=== PATIENT | male | born 1965 | race Hispanic/Latino ===

== ENCOUNTER 2022-04-24 18:08 | Day surgery (SDC) | payer OTHER ==
[~2022-04-24 18:08] MED LIST: Iopamidol 300 61% 100 ML VIAL FS ONE
[2022-04-24] MEDS ORDERED: Ondansetron PF 4 MG/2 ML Vial ONE ×2 (19:06→22:17)
[2022-04-24] MEDS ORDERED: Morphine 4 MG/ML VIAL ONE (19:06)
[2022-04-24] MEDS ORDERED: Ketorolac Tromethamine 30 MG/ML VIAL ONE ×2 (19:07→22:17)
[2022-04-24 19:19] LABS: #Monocytes 0.5 10x3/uL (0.0-1.1); #Neutrophils 11.4 10x3/uL (1.5-8.4); %Basophils 0.2 % (0.0-2.0); %Eosinophils 0.2 % (0.0-6.0); %Lymphocytes 6.5 % (18.0-47.0); %Monocytes 4.2 % (0.0-10.0); %Neutrophils 88.5 % (40.0-75.0); Hemoglobin 14.8 g/dL (13.5-17.5); Mean Corpuscular HGB CONC 33.9 g/dL (32.0-36.0); Mean Corpuscular Hemoglobin 30.5 pg (27.0-33.0); Mean Corpuscular Volume 89.7 fl (81.2-95.1); Mean Platelet Volume 9.3 fl (7.4-10.4); Platelet Count 266 10x3/uL (150-450); RBC Distribution Width 12.1 % (11.5-14.5); Red Blood Cell (RBC) Count 4.86 10x6/uL (4.32-5.72); White Blood Cell (WBC) Count 12.9 10x3/uL (3.5-10.5)
[2022-04-24 19:22] LABS: ALT (SGPT) 31 U/L (8-55); AST (SGOT) 21 U/L (5-34); Albumin 4.4 g/dL (3.5-5.0); Alkaline Phosphatase 92 U/L (40-110); Anion Gap 15 mmol/L (10-20); BUN (Urea Nitrogen) 13 mg/dL (8.4-25.7); Bilirubin, Total 0.4 mg/dL (0.2-1.2); Calc. Creatinine Clearance 0 mL/min (70-130); Calcium 8.7 mg/dL (7.8-10.44); Carbon Dioxide 22 mmol/L (22-29); Chloride 104 mmol/L (98-107); Estimated GFR 102; Globulin 3.3 g/dL (2.4-3.5); Glucose 156 mg/dL (70-105); Lipase 9 U/L (8-78); Potassium 4.2 mmol/L (3.5-5.1); Protein, Total 7.7 g/dL (6.0-8.3); Sodium 137 mmol/L (136-145)
[2022-04-24] MEDS ORDERED: Piperacillin/Tazobactam 4.5 GM VIAL ONE (21:05)
[2022-04-24] MEDS ORDERED: Bupivacaine HCl 0.5%/Epinephrine 1:200,000/PF 30 ml Vial ONE (21:46)
[2022-04-24 21:57] LABS: SARS-CoV-2 NAA Rapid Test Not Detected (NotDetected)
[2022-04-24] MEDS ORDERED: SUGAMMADEX SODIUM 200 MG/2 ML VIAL ONE (22:01)
[2022-04-24] MEDS ORDERED: PROPOFOL 20 ML ONE (22:03)
[2022-04-24] MEDS ORDERED: Fentanyl 100 MCG/2 ML VIAL ONE ×2 (22:04→22:52)
[2022-04-24] MEDS ORDERED: Phenylephrine 10 MG/ML VIAL ONE (22:06)
[2022-04-24] MEDS ORDERED: Succinylcholine 200 MG/10 ml SYRINGE FS ONE (22:17)
[2022-04-24] MEDS ORDERED: Lidocaine 1% PF 5 ML VIAL ONE (22:17)
[2022-04-24] MEDS ORDERED: Dexamethasone 4 mg/ml Vial ONE (22:17)
[2022-04-24] MEDS ORDERED: Rocuronium Bromide 10 MG/ML (10ML VIAL) ONE (22:17)
[2022-04-24] MEDS ORDERED: CEFAZOLIN 1 GM VIAL ONE (22:38)
[2022-04-24] MEDS ORDERED: Glycopyrrolate 0.2 MG/ML 5 ML SYRINGE ONE (23:08)
== END 2022-04-25 00:20 | disposition home or self-care (01) ==
LOC: CSHERS 18:08 → CSHSDC 22:16 → CSHERS 22:16 → CSHSDC 04-25 00:20 → CSHERS 04-25 00:20
PROVIDERS: ATTEND Surgery
PROC: 0DTJ4ZZ Resection of Appendix, Percutaneous Endoscopic Approach (ICD-10-PCS; principal; 2022-04-24)
DX: K35.30 Acute appendicitis with localized peritonitis, without perforation or gangrene (principal); R11.2 Nausea with vomiting, unspecified; D72.829 Elevated white blood cell count, unspecified; E78.00 Pure hypercholesterolemia, unspecified; Z20.822 Contact with and (suspected) exposure to COVID-19; Z79.899 Other long term (current) drug therapy
CPT/HCPCS: 71045; 74177; 76705; 80053; 83690; 84484; 85025; 88304; 93005; 96365; 96375; J0690; J1100; J1885; J2270; J2370; J2405; J2543; J2704; J3010; Q9967; U0002

== ENCOUNTER 2024-09-24 17:43 | Emergency (ER) | payer OTHER ==
[2024-09-24] MEDS ORDERED: Acetaminophen 500 MG TAB ONE (18:42)
[2024-09-24] MEDS ORDERED: Bacitracin 1 PK ONE (19:18)
== END 2024-09-24 19:30 ==
LOC: CSHERS 17:43
DX: S80.212A Abrasion, left knee, initial encounter (principal); M47.816 Spondylosis without myelopathy or radiculopathy, lumbar region; W01.0XXA Fall on same level from slipping, tripping and stumbling without subsequent striking against object, initial encounter; Y93.01 Activity, walking, marching and hiking; Y92.89 Other specified places as the place of occurrence of the external cause
CPT/HCPCS: 71046; 72100